=== PATIENT | male | born 1965 | race Caucasian/White ===

== ENCOUNTER → 2016-09-14 | Outpatient (CLI) | payer OTHER ==
[2016-09-14 16:41] LABS: BASO % 1 % (0-3); EOS % 1 % (0-3); HEMATOCRIT 39.1 % (39.0-53.0); HEMOGLOBIN 12.7 g/dL (13.0-17.5); LYMPH # 1.9 x10^3/uL (1.0-4.8); LYMPH % 34 % (24-48); MEAN CORPUSCULAR HEMOGLOBIN 21 pg (25-35); MEAN CORPUSCULAR HGB CONC 32 g/dL (31-37); MEAN CORPUSCULAR VOLUME 64 fL (79-100); MONO % 8 % (0-9); NEUT % 56 % (31-73); PLATELET COUNT 169 x10^3/uL (140-400); RED BLOOD COUNT 6.09 x10^6/uL (4.30-5.70); WHITE BLOOD COUNT 5.4 x10^3/uL (4.0-11.0)
[2016-09-14 17:08] LABS: ALBUMIN 4.3 g/dL (3.4-5.0); ALBUMIN/GLOBULIN RATIO 1.3 (1.0-1.7); CALCIUM 9.5 mg/dL (8.5-10.1); CHOLESTEROL/HDL RATIO 4.3; GFR 78.2; TOTAL BILIRUBIN 0.9 mg/dL (0.2-1.0); TOTAL PROTEIN 7.7 g/dL (6.4-8.2)
[2016-09-14 17:19] LABS: FREE T4 1.11 ng/dL (0.76-1.46)
[2016-09-14 19:15] LABS: OVALOCYTES OCC; PLT ESTIMATE ADEQUATE (ADEQUATE)
[2016-09-15 10:23] LABS: VITAMIN D25(OH)TOTAL 30.8 ng/mL (30.0-100.0)
[2016-09-16 06:20] LABS: PSA FREE 0.38 ng/mL
== END | disposition home or self-care (01) ==
LOC: SPEC 16:30
PROVIDERS: ATTEND Family Medicine
DX: Z12.5 Encounter for screening for malignant neoplasm of prostate (principal); Z13.29 Encounter for screening for other suspected endocrine disorder; E55.9 Vitamin D deficiency, unspecified; I10 Essential (primary) hypertension
CPT/HCPCS: 36415; 80053; 80061; 82306; 83036; 84439; 84443; 85007; 85027